=== PATIENT | female | born 1990 | race Caucasian/White ===

== ENCOUNTER 2017-12-01 18:41 | Emergency (ER) | payer OTHER ==
[2017-12-01 19:17] VITALS: BP 117/68
[2017-12-01] MEDS ORDERED: LIDOCAINE 2% VISCOUS SOLN 20 ML UDCUP PO ONE (20:05)
--- NOTE | 2017-12-01 20:15 | ER Document Report ---
HPI - HPI Pain Level: 4 Notes: Patient is a 27-year-old female with no significant past medical history presents the ED complaining of right ear pain 1 month. Patient states that her pain has been somewhat intermittent, but more consistent over the last several days. Patient states she has been using peroxide which seems to help at times. Patient states there was one day where she did notice some discharge from her ear. She has not had any changes in her hearing or tinnitus. She has not had any recent illness otherwise. Denies any headache, fever, head injury, neck pain, URI, sore throat, chest pain, palpitations, syncope, cough, shortness of breath, wheeze, dyspnea, abdominal pain, nausea/vomiting/diarrhea, urinary retention, dysuria, hematuria, or rash. - ROS Systems Reviewed and Negative: Yes All other systems reviewed and negative - REPRODUCTIVE Reproductive: DENIES: : Past Medical History - Social History Smoking Status: Current Every Day Smoker Family History: None Past Surgical History: Reports: Hx Abdominal Surgery - hernia, ectopic Vertical Provider Document - CONSTITUTIONAL Agree With Documented VS: Yes Notes: PHYSICAL EXAMINATION: GENERAL: Well-appearing, well-nourished and in no acute distress. A&Ox4. Answers questions appropriately. Moves comfortably w/o notable distress HEAD: Atraumatic, normocephalic. EYES: Pupils equal round and reactive to light, extraocular movements intact, sclera anicteric, conjunctiva are normal. ENT: EAC clear b/l with mild erythema and + tenderness to the Rt. + tragus tenderness rt. No mastoid tenderness or erythema. LT EAC wnl. TM's intact b/l without erythema, fluid, or perforation. Nares patent and without discharge. oropharynx no erythema without exudates. No tonsilar hypertrophy without erythema or exudate. No palatine shift. Uvula midline. No tongue protrusion. No drooling, hoarseness, or airway compromise. Moist mucous membranes. No sinus tenderness. NECK: Normal range of motion, supple without lymphadenopathy. No rigidity/ meningismus. LUNGS: Breath sounds clear to auscultation bilaterally and equal. No wheezes rales or rhonchi. No retractions HEART: Regular rate and rhythm without murmurs, rubs, gallops. ABDOMEN: Soft, nontender, nondistended abdomen. No guarding, no rebound. No masses appreciated. Normal bowel sounds present. No CVA tenderness bilaterally. No hepatosplenomegaly. NEUROLOGICAL: Normal speech, normal gait. Normal sensory, motor exams PSYCH: Normal mood, normal affect. SKIN: Warm, Dry, normal turgor, no rashes or lesions noted. - INFECTION CONTROL TRAVEL OUTSIDE OF THE [place] IN LAST 30 DAYS: No - RESPIRATORY O2 Sat by Pulse Oximetry: 98 Course - Re-evaluation Re-evalutation: 12/01/17 20:15 Patient is an afebrile, well-hydrated, 27-year-old female who presents to the ED with a mild tightness otitis externa of the right side. Vitals are stable. PE is otherwise unremarkable. Viscous lidocaine was applied and immediately improved symptoms. No wick placement is warranted at this time. TM is not perforated. Low suspicion for any sepsis, meningitis, severe dehydration, respiratory compromise, mastoiditis, or other systemic emergent condition at this time. Patient is aware that condition can change from initial presentation and she needs to monitor symptoms closely and seek medical attention with any acute changes. I will send her home with a prescription for Ciprodex. Conservative measures for symptoms otherwise. Recheck with your PCM in 3-5 days. Consider consult ENT. Return to the ED with any worsening/ concerning symptoms otherwise as reviewed discharge. Patient is in agreement. - Vital Signs Vital signs: Temp Pulse Resp BP Pulse Ox 98.6 F 86 16 117/68 98 12/01/17 19:16 12/01/17 19:16 12/01/17 19:16 12/01/17 19:16 12/01/17 19:16 Discharge - Discharge Clinical Impression: Otitis externa Qualifiers: Otitis externa type: unspecified type Chronicity: acute Laterality: right Qualified Code(s): H60.501 - Unspecified acute noninfective otitis externa, right ear Condition: Stable Disposition: HOME, SELF-CARE Instructions: Use of Ear Drops ([facility]), Otitis Externa ([facility]) Additional Instructions: Maintain adequate fluid intake Take meds as directed Avoid use of q-tips in ears Keep the ears clean tylenol/ibuprofen as needed over the counter cold medication as needed for symptoms Wash your hands regularly F/u: with your PCM in 3-5 days for a recheck Consider consult with ENT Return to the ED with any fever, worsening pain, chest pain, palpitations, syncope, worsening GOINS, neck pain/stiffness, shortness of breath, wheezing, drooling, trouble swallowing/breathing, abdominal pain, n/v/d, rash, or worsening/concerning symptoms otherwise. Prescriptions: Ciprofloxacin HCl/Dexameth [Ciprodex Otic Suspension 7.5 ml Bottle] 4 drop OT BID #1 bottle Referrals: ROE STEPHENSON DO [Primary Care Provider] - Follow up in 3-5 days EMMANUEL MAYO DO [ASSOCIATE] - Follow up as needed
== END 2017-12-01 20:43 | disposition home or self-care (01) ==
LOC: ER 18:41
DX: H60.501 Unspecified acute noninfective otitis externa, right ear (principal); H92.01 Otalgia, right ear; F17.200 Nicotine dependence, unspecified, uncomplicated
CPT/HCPCS: 99282

== ENCOUNTER 2018-09-17 19:19 | Emergency (ER) | payer OTHER ==
--- NOTE | 2018-09-17 19:45 | ER Document Report ---
ED Medical Screen (RME) - General Chief Complaint: Groin Pain Stated Complaint: VAGINAL PAIN Time Seen by Provider: 09/17/18 19:40 Notes: Patient is a 28-year-old female that presents to the emergency department for chief complaint of inguinal pain. Patient states about 1 week ago, she had an injury after intercourse, on the left aspect of her perineum, she states she has had a "lump" in that area, and it is painful, and has been present since then, and she wants to have this evaluated, she states she has a history of a hernia but she is unsure if it is a hernia or not. Denies any urinary symptoms , states she had a tubal ligation, does not believe that she is . ROS: Other than noted above, the 12 point review of systems was reviewed with the patient and were negative, all pertinent findings are included in the HPI. PHYSICAL EXAMINATION: Vital signs reviewed. GENERAL: Well-appearing, well-nourished and in no acute distress. HEAD: Atraumatic, normocephalic. EYES: Pupils equal round extraocular movements intact, conjunctiva are normal. ENT: Nares patent NECK: Normal range of motion CV: Heart regular rate and rhythm LUNGS: No respiratory distress Musculoskeletal: Normal range of motion NEUROLOGICAL: Normal speech PSYCH: Normal mood, normal affect. MDM: Patient seen and examined for rapid initial assessment. Vital signs reviewed. Patient will need a room to be evaluated with an external pelvic exam, to determine if any further imaging or evaluation is needed. A comprehensive ED assessment and evaluation of the patient, analysis of test results and completion of the medical decision making process will be conducted by additional ED providers. *Note is created using voice recognition software and may contain spelling, syntax or grammatical errors. TRAVEL OUTSIDE OF THE [place] IN LAST 30 DAYS: No - Related Data Allergies/Adverse Reactions: sulfamethoxazole [From Septra] Allergy (Verified 01/22/14 12:51) trimethoprim [From Septra] Allergy (Verified 01/22/14 12:51) Past Medical History - Social History Chew tobacco use (# tins/day): No Frequency of alcohol use: None Drug Abuse: None Renal/ Medical History: Denies: Hx Peritoneal Dialysis Past Surgical History: Reports: Hx Abdominal Surgery - hernia, ectopic Physical Exam - Vital signs Vitals: Temp Pulse Resp BP Pulse Ox 99.3 F 101 H 15 109/63 100 09/17/18 19:29 09/17/18 19:29 09/17/18 19:29 09/17/18 19:29 09/17/18 19:29 Course - Vital Signs Vital signs: Temp Pulse Resp BP Pulse Ox 99.3 F 101 H 15 109/63 100 09/17/18 19:29 09/17/18 19:29 09/17/18 19:29 09/17/18 19:29 09/17/18 19:29 Doctor's Discharge - Discharge Referrals: ROE STEPHENSON, [Primary Care Provider] - Follow up as needed
[2018-09-17] MEDS ORDERED: LIDOCAINE 1% INJ-PF (10 MG/ML) 30 ML SDV INJ ONE (20:57)
[2018-09-17] MEDS ORDERED: DOXYCYCLINE HYCLATE 100 MG TABLET PO ONE (20:57)
[2018-09-17] MEDS ORDERED: HYDROCODONE/ACETAMINOPHEN 5-325 MG (6 TAB/ER DISP) PO PRN (20:57)
[2018-09-17] MEDS ORDERED: CEFTRIAXONE INJ 1000 MG VIAL IM ONE (20:57)
--- NOTE | 2018-09-17 21:02 | ER Document Report ---
HPI - HPI Patient complains to provider of: Pain to perineum Time Seen by Provider: 09/17/18 19:40 Onset: Last week Onset/Duration: Worse Quality of pain: Achy Pain Level: 5 Context: Patient states that she was having intercourse last week and that her partner accidentally missed the vagina hitting her in the inguinal area on the left side. Patient states she had pain that gradually started to worsen. Patient complains of a tender lump to this area. Patient denies any vaginal discharge or bleeding. Patient denies any fever. Associated Symptoms: Other - Pain to perineum Exacerbated by: Movement Relieved by: Denies Similar symptoms previously: No Recently seen / treated by doctor: No - ROS ROS below otherwise negative: Yes Systems Reviewed and Negative: Yes All other systems reviewed and negative - CONSTITUTIONAL Constitutional: DENIES: Fever, Chills - GASTROINTESTINAL Gastrointestinal: DENIES: Abdominal Pain, Nausea, Patient vomiting - URINARY Urinary: DENIES: Dysuria - REPRODUCTIVE Reproductive: DENIES: :, Abnormal bleeding / discharge Notes: Pain to the perineum - MUSCULOSKELETAL Musculoskeletal: DENIES: Extremity pain, Back Pain - DERM Skin Color: Normal Skin Problems: None Past Medical History - General Information source: Patient - Social History Smoking Status: Current Every Day Smoker Chew tobacco use (# tins/day): No Smoking Education Provided: Yes Frequency of alcohol use: None Drug Abuse: None Occupation: [employer] Family History: None Patient has suicidal ideation: No Patient has homicidal ideation: No - Medical History Medical History: Negative Renal/ Medical History: Denies: Hx Peritoneal Dialysis Past Surgical History: Reports: Hx Abdominal Surgery - hernia, ectopic Vertical Provider Document - CONSTITUTIONAL Agree With Documented VS: Yes Exam Limitations: No Limitations General Appearance: WD/WN, No Apparent Distress - INFECTION CONTROL TRAVEL OUTSIDE OF THE [place] IN LAST 30 DAYS: No - HEENT HEENT: Atraumatic, Normocephalic - NECK Neck: Normal Inspection - RESPIRATORY Respiratory: Breath Sounds Normal, No Respiratory Distress - CARDIOVASCULAR Cardiovascular: Regular Rate, Regular Rhythm - REPRODUCTIVE Female Genitalia: Abnormal Inspection - Subtle fullness noted to the left labia , palpable tenderness noted to the 4 o'clock position to the vaginal introitus, no drainable Bartholin gland abscess noted, normal skin color and temperature overlying area of tenderness - BACK Back: Normal Inspection - MUSCULOSKELETAL/EXTREMETIES Musculoskeletal/Extremeties: MAEW, FROM, Non-Tender - NEURO Level of Consciousness: Awake, Alert, Appropriate Motor/Sensory: No Motor Deficit - DERM Integumentary: Warm, Dry, No Rash. negative: Abscess Course - Re-evaluation Re-evalutation: 09/17/18 20:59 Patient presents with tenderness to the perineum after being traumatized during consensual intercourse. Patient reports area has gradually become more tender and she has noted an area of swelling. Patient does not have any definite drainable Bartholin gland abscess. There is concerned about possible hematoma. Normal skin color and temperature overlying area, no concern for cellulitis at this time. Patient is otherwise hemodynamically stable for discharge. Consulted with Dr. Godoy regarding patient presentation exam findings and outpatient management. Agrees with plan to start course of antibiotics as well as plan for follow-up with EMPLOYMENT ADVISOR this week for recheck. Good return precautions given to patient. - Vital Signs Vital signs: Temp Pulse Resp BP Pulse Ox 99.3 F 101 H 15 109/63 100 09/17/18 19:29 09/17/18 19:29 09/17/18 19:29 09/17/18 19:29 09/17/18 19:29 Discharge - Discharge Clinical Impression: Perineum pain, female Condition: Stable Disposition: HOME, SELF-CARE Instructions: Anti-Inflammatory Medication ([facility]), Doxycycline ([facility]), Oral Narcotic Medication ([facility]), Rocephin ([facility]) Additional Instructions: Return immediately for any new or worsening symptoms Followup with your primary care provider, call tomorrow to make a followup appointment Follow-up with comber operator for further evaluation, call tomorrow for an appointment Prescriptions: Cephalexin Monohydrate [Keflex 500 mg Capsule] 500 mg PO Q6H 5 Days capsule Doxycycline Hyclate 100 mg PO BID #20 capsule Naproxen [Naprosyn 250 Nmg Tablet] 1 tab PO BID #14 tablet Forms: Smoking Cessation Education Referrals: [facility] [Provider Group] - Follow up as needed [place] [facility] [Provider Group] - Follow up as needed
[2018-09-17 21:12] VITALS: BP 109/59
== END 2018-09-17 21:35 | disposition home or self-care (01) ==
LOC: ER 19:19
DX: R10.2 Pelvic and perineal pain (principal)
CPT/HCPCS: 99283; 96374; J3490; J0696

== ENCOUNTER 2018-12-22 07:35 | Emergency (ER) | payer OTHER ==
[2018-12-22] MEDS ORDERED: NORMAL SALINE 1000 ML 1,000 ML IV ONE (07:57)
[2018-12-22 08:26] LABS: ABSOLUTE LYMPHOCYTES (AUTO) 1.3 10^3/uL (0.5-4.7); ABSOLUTE MONOCYTES (AUTO) 1.5 10^3/uL (0.1-1.4); ABSOLUTE NEUT (AUTO) 10.9 10^3/uL (1.7-8.2); BASOPHILS % (AUTO) 0.1 % (0-2); HEMATOCRIT 36.2 % (36.0-47.0); HEMOGLOBIN 12.5 g/dL (12.0-15.5); LYMPHOCYTES % (AUTO) 9.5 % (13-45); MEAN CORPUSCULAR HEMOGLOBIN 30.3 pg (27.0-33.4); MEAN CORPUSCULAR HGB CONC 34.5 g/dL (32.0-36.0); MEAN CORPUSCULAR VOLUME 88 fl (80-97); MONOCYTES % (AUTO) 11.1 % (3-13); PLATELET COUNT 252 10^3/uL (150-450); RED BLOOD COUNT 4.13 10^6/uL (3.72-5.28); RED CELL DISTRIBUTION WIDTH 13.3 % (11.5-14.0); SEGMENTED NEUTROPHILS % (AUTO) 79.3 % (42-78); TOTAL CELLS COUNTED % (AUTO) 100 %; WHITE BLOOD COUNT 13.8 10^3/uL (4.0-10.5)
[2018-12-22 08:43] LABS: APPEARANCE,URINE SLIGHTLY-CLOUDY; BILIRUBIN,URINE NEGATIVE (NEGATIVE); COLOR,URINE YELLOW; GLUCOSE, URINE NEGATIVE (NEGATIVE); KETONES,URINE 20 mg/dL (NEGATIVE); LEUKOCYTE ESTERASE,URINE LARGE (NEGATIVE); NITRITE,URINE NEGATIVE (NEGATIVE); PROTEIN,URINE NEGATIVE (NEGATIVE); URINE SPECIFIC GRAVITY 1.009
[2018-12-22] MEDS ORDERED: CEFTRIAXONE 1 GM/D5W RTU 1 GM/50 ML RTUPB IV ONE (08:47)
[2018-12-22 08:52] LABS: ALANINE AMINOTRANSFERASE 25 U/L (9-52); ALBUMIN 3.9 g/dL (3.5-5.0); ALKALINE PHOSPHATASE 87 U/L (38-126); ANION GAP 10 (5-19); ASPARTATE AMINO TRANSFERASE 17 U/L (14-36); BILIRUBIN,DIRECT 0.2 mg/dL (0.0-0.4); BILIRUBIN,TOTAL 0.6 mg/dL (0.2-1.3); BLOOD UREA NITROGEN 9 mg/dL (7-20); CARBON DIOXIDE 25 mmol/L (22-30); CHLORIDE 99 mmol/L (98-107); GLUCOSE 122 mg/dL (75-110); LIPASE 34.4 U/L (23-300); POTASSIUM 3.6 mmol/L (3.6-5.0); SODIUM 133.6 mmol/L (137-145); TOTAL PROTEIN 6.6 g/dL (6.3-8.2)
[2018-12-22] MEDS ORDERED: ONDANSETRON HCL INJ/PF 4 MG/2 ML SDV IV ONE (09:31)
[2018-12-22] MEDS ORDERED: KETOROLAC TROMETHAMINE INJ/PF 30 MG/1 ML SDV IV ONE (09:31)
--- NOTE | 2018-12-22 10:58 | RADIOLOGY REPORT (SQ) ---
EXAM DESCRIPTION: U/S ABDOMEN LIMITED W/O DOP COMPLETED DATE/TIME: 12/22/2018 10:38 am REASON FOR STUDY: ruq pain right flank pain COMPARISON: None. TECHNIQUE: Dynamic and static grayscale images acquired of the abdomen and recorded on PACS. Additio nal selected color Doppler and spectral images recorded. LIMITATIONS: None. FINDINGS: PANCREAS: No masses. Visualized pancreatic duct normal caliber. LIVER: No masses. Echotexture normal. LIVER VASCULATURE: Normal directional flow of the main portal vein and hepatic veins. GALLBLADDER: No stones. Normal wall thickness. No pericholecystic fluid. ULTRASOUND-DETECTED LYNCH'S SIGN: Negative. INTRAHEPATIC DUCTS AND COMMON DUCT: CBD and intrahepatic ducts normal caliber. No filling defects. INFERIOR VENA CAVA: Normal flow. AORTA: No aneurysm. RIGHT KIDNEY: Normal size. Normal echogenicity. No solid or suspicious masses. No hydronephrosis. No calcifications. PERITONEAL AND RIGHT PLEURAL SPACE: No ascites or effusions. OTHER: No other significant findings. IMPRESSION: NORMAL RIGHT UPPER QUADRANT ULTRASOUND. TECHNICAL DOCUMENTATION: JOB ID: [id number]- All Rights Reserved Reading location - IP/workstation name: [email or web address]
--- NOTE | 2018-12-22 11:53 | ER Document Report ---
ED General - General Chief Complaint: Flank Pain Stated Complaint: RIGHT SIDE PAIN Time Seen by Provider: 12/22/18 07:57 TRAVEL OUTSIDE OF THE [place] IN LAST 30 DAYS: No - HPI Patient complains to provider of: Right flank Notes: Patient coming in for 24 hours of right flank pain right upper quadrant pain associate with nausea vomiting. Patient denies any dysuria denies any exace rbation of the pain with movement or with food. Patient denies any vaginal discharge fevers or chills. Patient otherwise resting company upon my evaluation denies any trauma to the abdomen - Related Data Allergies/Adverse Reactions: ciprofloxacin [From Cipro] Allergy (Verified 12/22/18 07:37) sulfamethoxazole [From Septra] Allergy (Verified 12/22/18 07:37) trimethoprim [From Septra] Allergy (Verified 12/22/18 07:37) Past Medical History - Social History Smoking Status: Current Every Day Smoker Drug Abuse: None Family History: None Patient has suicidal ideation: No Patient has homicidal ideation: No Renal/ Medical History: Denies: Hx Peritoneal Dialysis Past Surgical History: Reports: Hx Abdominal Surgery - hernia, ectopic Review of Systems - Review of Systems Constitutional: No symptoms reported EENT: No symptoms reported Cardiovascular: No symptoms reported Respiratory: No symptoms reported Gastrointestinal: Abdominal pain - Right upper quadrant right flank Genitourinary: No symptoms reported Female Genitourinary: No symptoms reported Musculoskeletal: No symptoms reported Skin: No symptoms reported Hematologic/Lymphatic: No symptoms reported Neurological/Psychological: No symptoms reported -: Yes All other systems reviewed and negative Physical Exam - Vital signs Vitals: Temp Pulse Resp BP Pulse Ox 99.3 F 107 H 18 114/62 99 12/22/18 07:44 12/22/18 07:44 12/22/18 07:44 12/22/18 07:44 12/22/18 07:44 Interpretation: Normal - General General appearance: Appears well, Alert - HEENT Head: Normocephalic, Atraumatic Eyes: Normal Pupils: PERRL - Respiratory Respiratory status: No respiratory distress Chest status: Nontender Breath sounds: Normal Chest palpation: Normal - Cardiovascular Rhythm: Regular Heart sounds: Normal auscultation Murmur: No - Abdominal Inspection: Normal Distension: No distension Bowel sounds: Normal Tenderness: Tender - Right upper quadrant right flank mild to moderate tenderne ss to palpation. No: McBurney's point, Greco's sign, Guarding, Rebound Organomegaly: No organomegaly - Back Back: Normal, Nontender - Extremities General upper extremity: Normal inspection, Nontender, Normal color, Normal ROM, Normal temperature General lower extremity: Normal inspection, Nontender, Normal color, Normal ROM, Normal temperature, Normal weight bearing. No: Kenneth's sign - Neurological Neuro grossly intact: Yes Cognition: Normal Orientation: AAOx4 Maria Antonia Coma Scale Eye Opening: Spontaneous [place] Coma Scale Verbal: Oriented Maria Antonia Coma Scale Motor: Obeys Commands [place] Coma Scale Total: 15 Speech: Normal Motor strength normal: LUE, RUE, LLE, RLE Sensory: Normal - Psychological Associated symptoms: Normal affect, Normal mood - Skin Skin Temperature: Warm Skin Moisture: Dry Skin Color: Normal Course - Re-evaluation Re-evalutation: 12/22/18 14:13 Ultrasound was negative urinalysis consistent with an infection more likely pyelonephritis given the patient's symptoms. Patient was given a dose of Rocephin here will send patient home with Keflex urine culture was ordered. - Vital Signs Vital signs: Temp Pulse Resp BP Pulse Ox 99.3 F 107 H 20 111/69 97 12/22/18 07:44 12/22/18 07:44 12/22/18 09:16 12/22/18 09:16 12/22/18 09:16 - Laboratory Result Diagrams: 12/22/18 08:00 12/22/18 08:00 Laboratory results interpreted by me: 12/22/18 12/22/18 12/22/18 08:00 08:00 08:00 WBC 13.8 H Seg Neutrophils % 79.3 H Lymphocytes % 9.5 L Absolute Neutrophils 10.9 H Absolute Monocytes 1.5 H Sodium 133.6 L Glucose 122 H Urine Ketones 20 H Urine Blood SMALL H Urine Urobilinogen 2.0 H Ur Leukocyte Esterase LARGE H Discharge - Discharge Clinical Impression: Acute pyelonephritis Condition: Good Disposition: HOME, SELF-CARE Instructions: Cephalexin ([facility]), Pyelonephritis ([facility]) Additional Instructions: Your evaluation is consistent with a kidney infection or acute pyelonephritis. Please take antibiotics as prescribed. He may take Tylenol Motrin for pain control. I would also recommend taking the Phenergan or Zofran as prescribed for nausea vomiting. I will give you a dose of Diflucan to take please take this 1 week after you finish your antibiotics if you are having vaginal discharge she can use Monistat until that time. Prescriptions: Cephalexin Monohydrate [Keflex 500 mg Capsule] 500 mg PO Q6H 10 Days capsule Fluconazole [Diflucan] 200 mg PO ONCE PRN #1 tablet PRN Reason: Ondansetron [Zofran Odt 4 mg Tablet] 1 - 2 tab PO Q4H PRN #30 tab.rapdis PRN Reason: For Nausea/Vomiting Promethazine HCl [Phenergan 25 mg Tablet] 25 mg PO Q6 #30 tablet Forms: Return to Work
[2018-12-22 13:04] VITALS: BP 111/69
== END 2018-12-22 13:09 | disposition home or self-care (01) ==
LOC: ER 07:35
DX: N10 Acute pyelonephritis (principal); R10.11 Right upper quadrant pain; R11.2 Nausea with vomiting, unspecified; F17.200 Nicotine dependence, unspecified, uncomplicated
CPT/HCPCS: 99284; 96375; 96365; 36415; 84702; 83690; 85025; 80053; 81001; 76705; J1885; J2405; J7030; J0696

== ENCOUNTER 2019-09-15 03:19 | Emergency (ER) | payer MEDICAID, OTHER ==
[2019-09-15 03:46] VITALS: BP 110/67
== END 2019-09-15 06:25 | disposition left against medical advice (07) ==
LOC: ER 03:19
DX: Z53.21 Procedure and treatment not carried out due to patient leaving prior to being seen by health care provider (principal)

== ENCOUNTER 2019-09-17 10:44 | Emergency (ER) | payer MEDICAID ==
[2019-09-17 10:55] VITALS: BP 129/73
[2019-09-17 11:31] LABS: APPEARANCE,URINE SLIGHTLY-CLOUDY; BILIRUBIN,URINE NEGATIVE (NEGATIVE); COLOR,URINE AMBER; GLUCOSE, URINE NEGATIVE (NEGATIVE); KETONES,URINE NEGATIVE (NEGATIVE); LEUKOCYTE ESTERASE,URINE SMALL (NEGATIVE); NITRITE,URINE NEGATIVE (NEGATIVE); PROTEIN,URINE 30 mg/dL (NEGATIVE); URINE SPECIFIC GRAVITY 1.028
[2019-09-17] MEDS ORDERED: LIDOCAINE 1% INJ-PF (10 MG/ML) 30 ML SDV INJ ONE (11:32)
[2019-09-17] MEDS ORDERED: AZITHROMYCIN 250 MG TABLET PO ONE (11:32)
[2019-09-17] MEDS ORDERED: CEFTRIAXONE INJ 250 MG VIAL IM ONE (11:32)
--- NOTE | 2019-09-17 11:37 | ER Document Report ---
HPI - HPI Time Seen by Provider: 09/17/19 11:32 Pain Level: 0 Context: Patient is a 29-year-old female who presents emergency department with a chief complaint of vaginal discharge. Patient reports 2 weeks ago she was exposed to an sexually transmitted disease. Patient reports her significant other was treated a few days ago and she is requesting treatment today. Patient reports she is having vaginal discharge that is green with some vaginal irritation and itching. Patient denies urinary symptoms. Patient denies pelvic pain. Patient denies nausea, vomiting or diarrhea. - REPRODUCTIVE Reproductive: DENIES: : Past Medical History - General Information source: Patient - Social History Smoking Status: Never Smoker Chew tobacco use (# tins/day): No Frequency of alcohol use: None Drug Abuse: None Lives with: Spouse/Significant other Family History: None Patient has suicidal ideation: No Patient has homicidal ideation: No - Past Medical History Cardiac Medical History: Reports: None Pulmonary Medical History: Reports: None EENT Medical History: Reports: None Neurological Medical History: Reports: None Endocrine Medical History: Reports: None Renal/ Medical History: Reports: None. Denies: Hx Peritoneal Dialysis Malignancy Medical History: Reports: None GI Medical History: Reports: None Musculoskeletal Medical History: Reports None Skin Medical History: Reports None Psychiatric Medical History: Reports: None Traumatic Medical History: Reports: None Infectious Medical History: Reports: None Past Surgical History: Reports: Hx Abdominal Surgery - hernia, ectopic Vertical Provider Document - CONSTITUTIONAL Agree With Documented VS: Yes Exam Limitations: Physical Impairment General Appearance: No Apparent Distress - INFECTION CONTROL TRAVEL OUTSIDE OF THE [place] IN LAST 30 DAYS: No - HEENT HEENT: Atraumatic, Normal ENT Exam, Normocephalic, PERRLA - NECK Neck: Normal Inspection - RESPIRATORY Respiratory: Breath Sounds Normal, No Respiratory Distress - CARDIOVASCULAR Cardiovascular: Regular Rate, Regular Rhythm - GI/ABDOMEN Gastrointestinal: Abdomen Soft, Abdomen Non-Tender, Normal Bowel Sounds - MUSCULOSKELETAL/EXTREMETIES Musculoskeletal/Extremeties: FROM - NEURO Level of Consciousness: Awake, Alert, Appropriate - DERM Integumentary: Warm, Dry, No Rash Course - Re-evaluation Re-evalutation: 09/17/19 11:35 Did inform the patient that I would like to perform a pelvic examination as she does report vaginal itching and irritation. Patient's gonorrhea and Chlamydia cultures have been sent via a dirty urine specimen. I did inform the patient we would check for yeast and bacterial vaginosis. Patient refusing pelvic examination at this time and just would like to be treated for gonorrhea. I did inform the patient we do simultaneously treat for gonorrhea and chlamydia. Patient verbalized understanding. Urinalysis and urine hCG have been sent. - Vital Signs Vital signs: Temp Pulse Resp BP Pulse Ox 98.0 F 103 H 16 129/73 H 99 09/17/19 10:49 09/17/19 10:49 09/17/19 10:49 09/17/19 10:49 09/17/19 10:49 - Laboratory Laboratory results interpreted by me: 09/17/19 11:45 Laboratory 09/17/19 09/17/19 10:53 10:53 Urine Color EDITH Urine Appearance SLIGHTLY-CLOUDY Urine pH 5.0 Ur Specific [place] 1.028 Urine Protein 30 H Urine Glucose (UA) NEGATIVE Urine Ketones NEGATIVE Urine Blood NEGATIVE Urine Nitrite NEGATIVE Urine Bilirubin NEGATIVE Urine Urobilinogen 2.0 H Ur Leukocyte Esterase SMALL H Urine WBC (Auto) 10 Urine RBC (Auto) 2 Urine Bacteria (Auto) 3+ Squamous Epi Cells Auto 4 Urine Mucus (Auto) MANY Urine Ascorbic Acid NEGATIVE Urine HCG, Qual NEGATIVE Discharge - Discharge Clinical Impression: Exposure to STD Condition: Stable Disposition: HOME, SELF-CARE Additional Instructions: *Today you are seen in the emergency department for possible STD exposure. You have been prophylactically treated for gonorrhea and chlamydia. Please wait at least 2 weeks to resume sexual activity. Ideally you do need to be rechecked to make sure if you had the infection this has improved. Please return to the emergency department if you develop fever, pelvic pain, increase in discharge that is getting worse, or any new or worsening symptoms. You need to use protection every time you have sex. Failure to do so can result in transmission of infections or unintended . You have been treated for an sexually transmitted infection (STI) today. All of your partners should be tested and treated as they are also likely to be infected. Please return if you develop abdominal pain, fever, persistent vomiting, or any other symptoms that are concerning to you.
[2019-09-17 12:44] LABS: CHLAM PCR NOT DETECTED (NOT DETECT)
== END 2019-09-17 12:22 | disposition home or self-care (01) ==
LOC: ER 10:44
DX: Z20.2 Contact with and (suspected) exposure to infections with a predominantly sexual mode of transmission (principal); N89.8 Other specified noninflammatory disorders of vagina
CPT/HCPCS: 99283; 96372; 81025; 81001; 87491; 87591; Q0144; J3490; J0696

== ENCOUNTER 2019-12-28 04:45 | Emergency (ER) | payer OTHER ==
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
[2019-12-28] MEDS ORDERED: MORPHINE SULFATE 10 MG/ML INJ IV ONE ×3 (06:06→09:26)
[2019-12-28] MEDS ORDERED: ONDANSETRON HCL INJ/PF 4 MG/2 ML SDV IV ONE (06:07)
[2019-12-28 06:29] LABS: ABSOLUTE EOSINOPHILS # (AUTO) 0.1 10^3/uL (0.0-0.6); ABSOLUTE LYMPHOCYTES (AUTO) 1.2 10^3/uL (0.5-4.7); ABSOLUTE MONOCYTES (AUTO) 0.7 10^3/uL (0.1-1.4); ABSOLUTE NEUT (AUTO) 7.5 10^3/uL (1.7-8.2); BASOPHILS % (AUTO) 0.3 % (0-2); EOSINOPHILS % (AUTO) 0.8 % (0-6); HEMATOCRIT 38.9 % (36.0-47.0); HEMOGLOBIN 13.3 g/dL (12.0-15.5); LYMPHOCYTES % (AUTO) 12.3 % (13-45); MEAN CORPUSCULAR HGB CONC 34.3 g/dL (32.0-36.0); MEAN CORPUSCULAR VOLUME 85 fl (80-97); MONOCYTES % (AUTO) 7.1 % (3-13); PLATELET COUNT 320 10^3/uL (150-450); RED BLOOD COUNT 4.59 10^6/uL (3.72-5.28); RED CELL DISTRIBUTION WIDTH 13.7 % (11.5-14.0); SEGMENTED NEUTROPHILS % (AUTO) 79.5 % (42-78); TOTAL CELLS COUNTED % (AUTO) 100 %; WHITE BLOOD COUNT 9.4 10^3/uL (4.0-10.5)
[2019-12-28 06:41] LABS: ALBUMIN 4.4 g/dL (3.5-5.0); ALKALINE PHOSPHATASE 80 U/L (38-126); ANION GAP 10 (5-19); ASPARTATE AMINO TRANSFERASE 44 U/L (14-36); BILIRUBIN,DIRECT 0.2 mg/dL (0.0-0.4); BILIRUBIN,TOTAL 0.5 mg/dL (0.2-1.3); BLOOD UREA NITROGEN 23 mg/dL (7-20); CALCIUM 9.4 mg/dL (8.4-10.2); CARBON DIOXIDE 28 mmol/L (22-30); CHLORIDE 103 mmol/L (98-107); GLUCOSE 103 mg/dL (75-110); POTASSIUM 4.1 mmol/L (3.6-5.0)
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
[2019-12-28 08:59] VITALS: BP 105/59
== END 2019-12-28 10:38 | disposition home or self-care (01) ==
LOC: ER 04:45
DX: S82.132A Displaced fracture of medial condyle of left tibia, initial encounter for closed fracture (principal); S12.200A Unspecified displaced fracture of third cervical vertebra, initial encounter for closed fracture; M25.562 Pain in left knee; M25.561 Pain in right knee; M79.605 Pain in left leg; R51 Headache; V87.7XXA Person injured in collision between other specified motor vehicles (traffic), initial encounter; F17.210 Nicotine dependence, cigarettes, uncomplicated; Z88.8 Allergy status to other drugs, medicaments and biological substances; Z88.2 Allergy status to sulfonamides; F17.200 Nicotine dependence, unspecified, uncomplicated
CPT/HCPCS: 96376; 99284; 96374; 96375; 36415; 85025; 80053; 73630; 73590; 73560; 70450; 71260; 72125; 74177; J2270; J2405